=== PATIENT | female | born 1955 | race Caucasian/White ===

== ENCOUNTER 2019-08-15 08:00 | Outpatient (CLI) | payer MEDICARE ==
[2019-08-15 18:54] LABS: BASOPHILS # (AUTO) 0.1 10^3/uL (0.0-0.1); EOSINOPHILS # (AUTO) 0.2 10^3/uL (0.0-0.7); EOSINOPHILS % (AUTO) 3.3 %; HGB - HEMOGLOBIN 12.9 g/dL (12.0-16.0); LYMPHOCYTES # (AUTO) 2.1 10^3/uL (1.5-3.5); LYMPHOCYTES % (AUTO) 42.7 %; MEAN CORPUSCULAR HEMOGLOBIN 33.2 pg (27.0-31.0); MEAN CORPUSCULAR HGB CONC 32.7 g/dL (32.0-36.0); MEAN CORPUSCULAR VOLUME 101.5 fL (81.0-99.0); MEAN PLATELET VOLUME 12.1 fL (7.9-10.8); MONOCYTES # (AUTO) 0.3 10^3/uL (0.0-1.0); MONOCYTES % (AUTO) 7.1 %; NEUTROPHILS # (AUTO) 2.2 10^3/uL (1.5-6.6); NEUTROPHILS % (AUTO) 45.7 %; PLT - PLATELET COUNT 172 10^3/uL (130-450); RED BLOOD COUNT 3.89 10^6/uL (4.20-5.40); RED CELL DISTRIBUTION WIDTH 13.1 % (12.0-15.0); WHITE BLOOD COUNT 4.8 x10^3/uL (4.8-10.8)
[2019-08-15 21:04] LABS: ALBUMIN 4.2 g/dL (3.2-5.5); ALBUMIN/GLOBULIN RATIO 1.4 (1.0-2.2); ALKALINE PHOSPHATASE 67 IU/L (42-121); ALT ALANINE AMINOTRANSFERASE 16 IU/L (10-60); AST ASPARTATE AMINOTRANSFERASE 22 IU/L (10-42); BILIRUBIN,TOTAL 0.7 mg/dL (0.2-1.0); BUN - BLOOD UREA NITROGEN 20 mg/dL (6-20); CARBON DIOXIDE - CO2 28 mmol/L (21-32); CHLORIDE 106 mmol/L (101-111); CHOL/HDL RATIO 2.5 (<4.4); CHOLESTEROL 177 mg/dL; CREATININE 0.9 mg/dL (0.4-1.0); GFR - MDRD 63 (>89); GLUCOSE 97 mg/dL (70-100); HDL CHOLESTEROL 72 mg/dL; LDL CHOLESTEROL,CALCULATED 96 mg/dL; LDL/HDL RATIO 1.3 (<4.4); SODIUM 139 mmol/L (135-145); TOTAL PROTEIN 7.2 g/dL (6.7-8.2); VLDL CHOLESTEROL 9 mg/dL
== END 2019-08-15 23:59 | disposition home or self-care (01) ==
LOC: LAB.WCP 08:00
PROVIDERS: ATTEND Nurse Practitioner Family
DX: Z00.00 Encounter for general adult medical examination without abnormal findings (principal)
CPT/HCPCS: 36415; 80053; 80061; 83721; 84443; 85025

== ENCOUNTER 2019-09-15 12:48 | Emergency (ER) | payer MEDICARE ==
--- NOTE | 2019-09-15 13:38 | XRAY Report ---
Reason: cough Procedure Date: 09/15/2019 Accession Number: [id number] / [id number] Procedure: XR - Chest 2 View X-Ray CPT Code: 02490 Final Report FULL RESULT: EXAM: CHEST RADIOGRAPHY EXAM DATE: 09/15/2019 01:14 PM. CLINICAL HISTORY: Cough. COMPARISON: None. TECHNIQUE: 2 views. FINDINGS: Lungs/Pleura: No focal opacities evident. No pleural effusion. No pneumothorax. Normal volumes. Mediastinum: Heart and mediastinal contours are unremarkable. Other: None. IMPRESSION: Negative chest RADIA
--- NOTE | 2019-09-15 15:01 | ED Physician Documentation ---
PD HPI URI - Stated complaint Stated Complaint: COUGH/SINUS PX - Chief complaint Chief Complaint: Resp - History obtained from History obtained from: Patient - History of Present Illness Timing - onset: How many weeks ago (1) Timing duration: Weeks (1) Timing details: Abrupt onset (onset malaise, cough and dyspnea a week ago. Just finished a cruise ship trip and traveled back. Several in her group started being sick there while still on the trip, with similar fever and cough.), Still present Associated symptoms: Fever, Chills, Nasal congestion, Productive cough, Dyspnea. No: Hemoptysis, Chest pain, NVD Contributing factors: Sick contact, Travel. No: Immunocompromised, COPD / asthma Similar symptoms before: Has not had sx before Recently seen: Clinic (went to PCP today and got Rx for Tessalon. Had not gotten it from pharmacy yet, had just got notice on phone that Rx was ready. Feeling more fatigue and worse cough, so here to ER for eval.) Review of Systems Constitutional: reports: Fever, Chills, Myalgias Nose: reports: Congestion Throat: denies: Sore throat Cardiac: denies: Chest pain / pressure, Palpitations Respiratory: reports: Dyspnea, Cough GI: reports: Nausea. denies: Abdominal Pain, Vomiting, Diarrhea : denies: Dysuria, Frequency Neurologic: reports: Generalized weakness, Headache. denies: Focal weakness, Numbness, Difficulty speaking, Confused, Altered mental status PD PAST MEDICAL HISTORY - Past Medical History Past Medical History: No Respiratory: None Neuro: None - Past Surgical History Past Surgical History: No - Present Medications Home Medications: Ambulatory Orders Medication Instructions Recorded Confirmed Albuterol Sulf [Ventolin Hfa 1 - 2 puffs INH Q4HR PRN #1 inhaler 09/15/19 Inhaler] Doxycycline Monohydrate 100 mg PO BID #14 tablet 09/15/19 dexAMETHasone [Decadron] 4 mg PO DAILY #7 tablet 09/15/19 guaiFENesin/CODEINE [Robitussin AC] 10 ml PO Q6H PRN #240 ml 09/15/19 - Allergies Allergies/Adverse Reactions: Allergies Allergy/AdvReac Type Severity Reaction Status Date / Time No Known Drug Allergies Allergy Verified 09/15/19 12:52 - Social History Does the pt smoke?: No Smoking Status: Never smoker Does the pt drink ETOH?: Yes Does the pt have substance abuse?: No - Immunizations Immunizations are current?: No Immunizations: TDAP >10years/unknown PD ED PE NORMAL - Vitals Vital signs reviewed: Yes - General General: Alert and oriented X 3, No acute distress (looks like she does not feel well. But still interacting well. ), Well developed/nourished - HEENT HEENT: Ears normal, Pharynx benign - Neck Neck: Supple, no meningeal sign, No adenopathy - Cardiac Cardiac: RRR, No murmur - Respiratory Respiratory: Clear bilaterally (no congested sounds. Has faint exp wheezing with deep breathing.) - Abdomen Abdomen: Soft, Non tender - Derm Derm: Normal color, Warm and dry - Extremities Extremities: No tenderness to palpate, Normal ROM s pain, No edema, No calf tenderness / cord - Neuro Neuro: Alert and oriented X 3, No motor deficit, Normal speech Results - Vitals Vitals: Vital Signs - 24 hr 09/15/19 09/15/19 09/15/19 12:52 14:55 15:45 Temperature 37.5 C Heart Rate 103 H 68 104 H Respiratory 18 18 18 Rate Blood Pressure 118/98 H 121/82 H O2 Saturation 95 99 Oxygen O2 Source Room air - Labs Labs: Microbiology 09/15/19 13:00 Group A Strep Throat Culture - Preliminary Throat Laboratory Tests 09/15/19 13:00 Group A Strep Rapid Negative - Rads (name of study) chest xray Radiology: Prelim report reviewed (no infiltrates), See rad report PD MEDICAL DECISION MAKING - ED course Complexity details: considered differential (seems flu-like with feeling very ill. Had been on cruise ship and others on group similarly sick. Likely viral but consider bacterial as well. Several meds Rx. She had gotten Rx for Tessalon from PCP today.), d/w patient Departure - Departure Disposition: 01 Home, Self Care Clinical Impression: Upper respiratory tract infection Qualifiers: URI type: unspecified URI Qualified Code(s): J06.9 - Acute upper respiratory infection, unspecified Condition: Stable Record reviewed to determine appropriate education?: Yes Instructions: ED Upper Resp Infec Abx Tx Follow-Up: JENNIFER WALL, MSN, [employer] [Primary Care Provider] - Prescriptions: Albuterol Sulf [Ventolin Hfa Inhaler] 1 - 2 puffs INH Q4HR PRN #1 inhaler PRN Reason: Shortness Of Air/Wheezing dexAMETHasone [Decadron] 4 mg PO DAILY #7 tablet Doxycycline Monohydrate 100 mg PO BID #14 tablet guaiFENesin/CODEINE [Robitussin AC] 10 ml PO Q6H PRN #240 ml PRN Reason: Cough Comments: The prescription available sounded like benzonatate which is used for cough suppression. The [facility] office said there was only one prescription called in to [facility]. Stay well-hydrated. Use Tylenol or ibuprofen if needed for fevers and aches. I would add albuterol inhaler 2 puffs 4 times a day for the next 7 to 10 days to help improve breathing and decreased cough. Also Decadron steroid anti- inflammatory for the next week to improve and reduce inflammation to the bronchials and sinuses. This will help symptoms quite a bit. Okay you can add cough medicine if needed. This may all be viral still but there is elements of sound concerning for bacterial at this point so we can add doxycycline twice daily for a week. Follow-up with your primary care if not improving well over the next several days return sooner if worsening. Discharge Date/Time: 09/15/19 16:29
[2019-09-15] MEDS ORDERED: CHERRY SYRUP 10 ML UDC PO ONE (15:28)
[2019-09-15] MEDS ORDERED: DOXYCYCLINE 100 MG TABLET PO STA (15:28)
[2019-09-15] MEDS ORDERED: DEXAMETHASONE 10 MG/ML VIAL PO STA (15:28)
[2019-09-15] MEDS ORDERED: ALBUTEROL NEB 2.5 MG/3 ML INH STA (15:28)
[2019-09-15] MEDS ORDERED: BENZONATATE 100 MG CAPSULE PO STA (15:28)
[2019-09-15 16:30] VITALS: BP 121/82
== END 2019-09-15 16:29 | disposition home or self-care (01) ==
LOC: ED 12:48
DX: J06.9 Acute upper respiratory infection, unspecified (principal)
CPT/HCPCS: 71046; 87070; 87430; 94640; 94664; 99283; 99284; A9270

== ENCOUNTER 2020-11-12 13:49 | Outpatient (CLI) | payer MEDICARE ==
--- NOTE | 2020-11-12 14:50 | XRAY Report ---
PROCEDURE: Hand 3 View RT INDICATIONS: R HAND PX TECHNIQUE: 3 views of the hand(s) acquired. COMPARISON: None FINDINGS: Bones: There is a moderately displaced oblique fracture of the midshaft of the fifth metacarpal. Join t space narrowing and periarticular osteophyte formation at the radiocarpal, scaphotrapezial, and fir st carpometacarpal joints, as well as the interphalangeal joints of the digits. No suspicious bony l esions. Soft tissues: No suspicious soft tissue calcifications. IMPRESSION: Fifth metacarpal fracture. Osteoarthritis. Reviewed by: Sadaf Mckeon MD on 11/12/2020 2:49 PM PST Approved by: Sadaf Mckeon MD on 11/12/2020 2:49 PM PST Station ID: [id number]
== END 2020-11-12 13:50 | disposition home or self-care (01) ==
LOC: DI.N 13:49
PROVIDERS: ATTEND Family Medicine
DX: S62.326A Displaced fracture of shaft of fifth metacarpal bone, right hand, initial encounter for closed fracture (principal); M19.041 Primary osteoarthritis, right hand

== ENCOUNTER 2020-11-18 08:10 | Outpatient (CLI) | payer MEDICARE ==
--- NOTE | 2020-11-18 15:42 | XRAY Report ---
PROCEDURE: Hand 3 View RT INDICATIONS: DISPLACED FX OF NECK OF 5TH METACARPAL TECHNIQUE: 3 views of the hand(s) acquired. COMPARISON: 11/12/2020 FINDINGS: Bones: Oblique fracture through fifth metacarpal shaft is again seen with lateral displacement at fra cture site not significantly changed from previous study. No new fracture or dislocation is seen. No significant callus formation is noted at fracture site. Osteoarthritic changes are noted throughout i nterphalangeal joints. No suspicious bony lesions. Soft tissues: No suspicious soft tissue calcifications. IMPRESSION: Slightly displaced spiral fracture of fifth metacarpal shaft with stable alignment. No new fracture o r dislocation. Reviewed by: Tod Orr MD on 11/18/2020 3:41 PM PST Approved by: Tod Orr MD on 11/18/2020 3:41 PM PST Station ID: [id number]
== END 2020-11-18 23:59 | disposition home or self-care (01) ==
LOC: DI.N 08:10
PROVIDERS: ATTEND Physician Assistant
DX: S62.326D Displaced fracture of shaft of fifth metacarpal bone, right hand, subsequent encounter for fracture with routine healing (principal)

== ENCOUNTER 2021-01-09 17:20 | Outpatient (CLI) | payer MEDICARE ==
--- NOTE | 2021-01-09 16:50 | XRAY Report ---
PROCEDURE: Hand 3 View RT INDICATIONS: DISPLACED FX OF NECK OF R 5TH METACARPAL TECHNIQUE: 3 views of the hand(s) acquired. COMPARISON: X-ray hand 11/18/2020 FINDINGS: Bones: There is a mildly displaced fracture of the mid fifth metacarpal. Minimal interval healing is present. No change in alignment. No suspicious bony lesions. Soft tissues: No suspicious soft tissue calcifications. IMPRESSION: Stable alignment of minimal interval healing of fifth mid metacarpal fracture. Reviewed by: Agnes Hampton MD on 01/09/2021 4:48 PM PDT Approved by: Agnes Hampton MD on 01/09/2021 4:48 PM PDT Station ID: [id number]
== END 2021-01-09 23:59 | disposition home or self-care (01) ==
LOC: DI.N 17:20
PROVIDERS: ATTEND Physician Assistant
DX: S62.336A Displaced fracture of neck of fifth metacarpal bone, right hand, initial encounter for closed fracture (principal)

== ENCOUNTER 2021-01-16 08:00 | Outpatient (CLI) | payer MEDICARE ==
--- NOTE | 2021-01-16 16:47 | XRAY Report ---
PROCEDURE: Knee 4 View BILAT INDICATIONS: BILATERAL KNEE PX TECHNIQUE: 4 views of the bilateral knee(s) were acquired. COMPARISON: None. FINDINGS: Moderate joint space narrowing in the bilateral medial femorotibial compartments with marginal osteop etrosis. Mild lateral femorotibial compartment joint space narrowing. Moderate patellofemoral joint s pace narrowing with marginal osteophytosis. IMPRESSION: Overall moderate osteoarthritic changes about the bilateral knees, fairly symmetric and worst in the medial compartments bilaterally. Reviewed by: Jef Murdock MD on 01/16/2021 4:46 PM PDT Approved by: Jef Murdock MD on 01/16/2021 4:46 PM PDT Station ID: [id number]
== END 2021-01-16 23:59 | disposition home or self-care (01) ==
LOC: DI.N 08:00
PROVIDERS: ATTEND Physician Assistant
DX: M17.0 Bilateral primary osteoarthritis of knee (principal)

== ENCOUNTER 2021-05-12 08:00 | Outpatient (CLI) | payer MEDICARE ==
[2021-05-12 18:39] LABS: BASOPHILS # (AUTO) 0.1 10^3/uL (0.0-0.1); EOSINOPHILS # (AUTO) 0.2 10^3/uL (0.0-0.7); EOSINOPHILS % (AUTO) 2.9 %; HGB - HEMOGLOBIN 13.1 g/dL (12.0-16.0); LYMPHOCYTES # (AUTO) 2.7 10^3/uL (1.5-3.5); LYMPHOCYTES % (AUTO) 43.9 %; MEAN CORPUSCULAR HEMOGLOBIN 33.4 pg (27.0-31.0); MEAN CORPUSCULAR HGB CONC 33.6 g/dL (32.0-36.0); MEAN CORPUSCULAR VOLUME 99.5 fL (81.0-99.0); MEAN PLATELET VOLUME 12.2 fL (7.9-10.8); MONOCYTES # (AUTO) 0.4 10^3/uL (0.0-1.0); MONOCYTES % (AUTO) 6.9 %; NEUTROPHILS # (AUTO) 2.8 10^3/uL (1.5-6.6); NEUTROPHILS % (AUTO) 45.1 %; PLT - PLATELET COUNT 187 10^3/uL (130-450); RED BLOOD COUNT 3.92 10^6/uL (4.20-5.40); RED CELL DISTRIBUTION WIDTH 12.4 % (12.0-15.0); WHITE BLOOD COUNT 6.2 x10^3/uL (4.8-10.8)
[2021-05-12 19:00] LABS: ALBUMIN 4.2 g/dL (3.2-5.5); ALBUMIN/GLOBULIN RATIO 1.4 (1.0-2.2); ALKALINE PHOSPHATASE 80 IU/L (42-121); ALT ALANINE AMINOTRANSFERASE 32 IU/L (10-60); AST ASPARTATE AMINOTRANSFERASE 29 IU/L (10-42); BUN - BLOOD UREA NITROGEN 19 mg/dL (6-20); CALCIUM 9.1 mg/dL (8.5-10.3); CARBON DIOXIDE - CO2 25 mmol/L (21-32); CHLORIDE 102 mmol/L (101-111); CHOLESTEROL 189 mg/dL; CREATININE 0.9 mg/dL (0.4-1.0); GFR - MDRD 63 (>89); GLUCOSE 100 mg/dL (70-100); HDL CHOLESTEROL 64 mg/dL; LDL CHOLESTEROL,CALCULATED 109 mg/dL; LDL/HDL RATIO 1.7 (<4.4); POTASSIUM 3.8 mmol/L (3.5-5.0); SODIUM 137 mmol/L (135-145); TOTAL PROTEIN 7.3 g/dL (6.7-8.2); TRIGLYCERIDES 82 mg/dL; VLDL CHOLESTEROL 16 mg/dL
[2021-05-12 19:12] LABS: THYROID STIMULATING HORMONE 5.02 uIU/mL (0.34-5.60)
== END 2021-05-12 23:59 | disposition home or self-care (01) ==
LOC: LAB.WCP 08:00
PROVIDERS: ATTEND Family Medicine
DX: R03.0 Elevated blood-pressure reading, without diagnosis of hypertension (principal)
CPT/HCPCS: 36415; 80053; 80061; 83721; 84443; 85025